=== PATIENT | female | born 1995 ===

== ENCOUNTER 2017-08-16 02:04 | Emergency (ER) | payer OTHER ==
[2017-08-16 02:16] VITALS: TEMP 98.1
[2017-08-16] MEDS ORDERED: LORazepam 2 MG/ML INJ ONE (02:32)
[2017-08-16] MEDS ORDERED: LORazepam 2 MG/ML INJ IVP ONE (02:36)
[2017-08-16 02:43] LABS: ANION GAP 23 mEq/L (8-16); CALCIUM 10.3 mg/dL (8.5-10.4); CARBON DIOXIDE 22 mEq/l (22-31); CHLORIDE 102 mEq/L (97-110); CREATININE 0.7 mg/dL (0.6-1.0); ETHANOL SERUM 271 mg/dL (0-10); GLOMERULAR FILTRATION RATE > 60; GLUCOSE 112 mg/dL (70-100); POTASSIUM 3.6 mEq/L (3.5-5.2); SODIUM 147 mEq/L (134-144)
[2017-08-16 02:45] LABS: % IMMATURE GRANULYOCYTES 0.4 % (0.0-1.1); ABSOLUTE IMMATURE GRANULOCYTES 0.03 10^3/uL (0.00-0.10); ADD DIFF? NO; ADD MORPH? NO; ADD SCAN? NO; ATYPICAL LYMPHOCYTE FLAG 10 (0-99); FRAGMENT RBC FLAG 0 (0-99); HEMATOCRIT 38.9 % (38.0-47.0); HEMOGLOBIN 13.9 g/dL (12.6-16.3); LEFT SHIFT FLG 0 (0-99); LIPEMIA HEMOLYSIS FLAG 90 (0-99); MEAN CELL HEMOGLOBIN 32.8 pg (27.9-34.1); MEAN CELL HEMOGLOBIN CONCENTR. 35.7 g/dL (32.4-36.7); MEAN CELL VOLUME 91.7 fL (81.5-99.8); MEAN PLATELET VOLUME 9.8 fL (8.7-11.7); PLATELET CLUMPS FLAG 0 (0-99); PLATELET COUNT 283 10^3/uL (150-400); RED BLOOD CELL COUNT 4.24 10^6/uL (4.18-5.33); RED CELL DISTRIBUTION WIDTH 12.3 % (11.5-15.2)
--- NOTE | 2017-08-16 02:53 | EDPHY ---
H & P Stated Complaint: ETOH - Personal History Current Tetanus/Diphtheria Vaccine: Yes Current Tetanus Diphtheria and Acellular Pertussis (TDAP): Yes - Medical/Surgical History Hx Asthma: Yes Hx Chronic Respiratory Disease: No Hx Diabetes: No Hx Cardiac Disease: Yes Hx Renal Disease: No Hx Cirrhosis: No Hx Alcoholism: No Hx HIV/AIDS: No Hx Splenectomy or Spleen Trauma: No Other PMH: hx of SVT, ? asthma - Social History Smoking Status: Never smoked Time Seen by Provider: 08/16/17 02:14 HPI/ROS: Chief Complaint: Alcohol intoxication, difficulty breathing HPI: 21-year-old female who is been out drinking this morning. Friends found her complaining of shortness of breath. She is having periods where she seems to go unconscious. EMS was called. They have noted episodes which she goes unconscious and stops breathing, she then wakes up gasping. She has had good oxygen saturations. She reports a history of a heart condition which is some sort of tachycardia. 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 Denies any recent illness. No fevers or chills. Does admit to drinking alcohol. Denies any other drug use. No nausea or vomiting. No falls. ROS: 10 point Review of Systems is negative except as noted in the HPI. PMH: Rapid heart rate Social History: No smoking, occasional alcohol, no recreational drug use Family History: non-contributory Physical Exam: Gen: Awake, Alert, smells of alcohol, tearful HEENT: Nose: no rhinorrhea Eyes: PERRLA, EOMI Mouth: Moist mucosa Neck: Supple, no JVD Chest: nontender, lungs clear to auscultation Heart: S1, S2 normal, no murmur Abd: Soft, non-tender, no guarding Back: no CVA tenderness, no midline tenderness Ext: no edema, non-tender Skin: no rash Neuro: CN II-XII intact, Sensation grossly intact, Strength 5/5 in bilateral upper and lower extremities (Angel Bolivar) Constitutional: Initial Vital Signs Temperature (C) 36.7 C 08/16/17 02:05 Heart Rate 89 08/16/17 02:05 Respiratory Rate 16 08/16/17 02:05 Blood Pressure 125/62 H 08/16/17 02:05 O2 Sat (%) 99 08/16/17 02:05 O2 Delivery Mode Room Air O2 (L/minute) 2 Medical Decision Making ED Course/Re-evaluation: Patient has been resting comfortably overnight. Symptoms improved after she did receive some Ativan. I think her symptoms are secondary to anxiety associated with her alcohol use. Patient is yet to ambulate in the emergency department. She is signed out to Dr. Vences pending successful ambulation. (Angel Bolivar) 7:00 a.m.-I assumed care of this patient at shift change. She presents with alcohol intoxication. She was combative upon arrival and received Ativan IV. She is currently sleeping comfortably. When she is awake and able to ambulate, she will be discharged home. Able to walk with a steady gait on discharge. (Tiffany Vences) Differential Diagnosis: Altered mental status including but not limited to hypoglycemia, infectious process, electrolyte abnormality, head injury and intoxicants. (Tiffany Vences) - Data Points Laboratory Results: Laboratory Results 08/16/17 02:39 08/16/17 02:03 08/16/17 08/16/17 08/16/17 03:23 02:39 02:03 WBC 7.08 10^3/uL 10^3/uL (3.80-9.50) RBC 4.24 10^6/uL 10^6/uL (4.18-5.33) Hgb 13.9 g/dL g/dL (12.6-16.3) Hct 38.9 % % (38.0-47.0) MCV 91.7 fL fL (81.5-99.8) MCH 32.8 pg pg (27.9-34.1) MCHC 35.7 g/dL g/dL (32.4-36.7) RDW 12.3 % % (11.5-15.2) Plt Count 283 10^3/uL 10^3/uL (150-400) MPV 9.8 fL fL (8.7-11.7) Neut % (Auto) 73.1 % % (39.3-74.2) Lymph % (Auto) 19.9 % % (15.0-45.0) Treasure % (Auto) 5.2 % % (4.5-13.0) Eos % (Auto) 0.6 % % (0.6-7.6) Baso % (Auto) 0.8 % % (0.3-1.7) Nucleat RBC Rel Count 0.0 % % (0.0-0.2) Absolute Neuts (auto) 5.17 10^3/uL 10^3/uL (1.70-6.50) Absolute Lymphs (auto) 1.41 10^3/uL 10^3/uL (1.00-3.00) Absolute Monos (auto) 0.37 10^3/uL 10^3/uL (0.30-0.80) Absolute Eos (auto) 0.04 10^3/uL 10^3/uL (0.03-0.40) Absolute Basos (auto) 0.06 10^3/uL 10^3/uL (0.02-0.10) Absolute Nucleated RBC 0.00 10^3/uL 10^3/uL (0-0.01) Immature Gran % 0.4 % % (0.0-1.1) Immature Gran # 0.03 10^3/uL 10^3/uL (0.00-0.10) Sodium 147 mEq/L H mEq/L (134-144) Potassium 3.6 mEq/L mEq/L (3.5-5.2) Chloride 102 mEq/L mEq/L (97-110) Carbon Dioxide 22 mEq/l mEq/l (22-31) Anion Gap 23 mEq/L H mEq/L (8-16) BUN 11 mg/dL mg/dL (7-23) Creatinine 0.7 mg/dL mg/dL (0.6-1.0) Estimated GFR > 60 Glucose 112 mg/dL H mg/dL (70-100) Calcium 10.3 mg/dL mg/dL (8.5-10.4) Urine Opiates Screen NEGATIVE (NEGATIVE) Urine Barbiturates NEGATIVE (NEGATIVE) Ur Phencyclidine Scrn NEGATIVE (NEGATIVE) Ur Amphetamine Screen NON-NEGATIVE H (NEGATIVE) U Benzodiazepines Scrn NEGATIVE (NEGATIVE) Urine Cocaine Screen NEGATIVE (NEGATIVE) U Marijuana (THC) Screen NEGATIVE (NEGATIVE) Ethyl Alcohol 271 mg/dL H mg/dL (0-10) Medications Given: Discontinued Medications Lorazepam (Ativan Injection) 1 mg IVP EDNOW ONE Stop: 08/16/17 02:37 Last Admin: 08/16/17 02:37 Dose: 1 mg Departure - Departure Disposition: Home, Routine, Self-Care Clinical Impression: Alcohol intoxication Qualifiers: Complication of substance-induced condition: uncomplicated Qualified Code(s): F10.920 - Alcohol use, unspecified with intoxication, uncomplicated Condition: Good Instructions: Alcohol Intoxication (ED) Referrals: [facility] ,. [Edm Groups for Call Sched] - As per Instructions
[2017-08-16 06:59] VITALS: O2SAT 100
[2017-08-16 07:35] VITALS: BP 96/76; PULSE 71; RESP 16
== END 2017-08-16 07:40 | disposition home or self-care (01) ==
LOC: EDUNIT#
DX: F10.920 Alcohol use, unspecified with intoxication, uncomplicated (principal)
CPT/HCPCS: 80305; 96374; G0480; J2060